=== PATIENT | female | born 1940 | race Caucasian/White ===

== ENCOUNTER 2016-11-06 10:11 | Outpatient (CLI) | payer MEDICARE, OTHER ==
--- NOTE | 2016-11-08 12:18 | Mammography Report ---
DIGITAL SCREENING MAMMOGRAM: 11/06/2016 CLINICAL INDICATION: A 75-year-old with history of benign left biopsy, for screening. COMPARISON: Films from [place], [place] dated 02/18/2015. TECHNIQUE: Routine CC and MLO projections were obtained of the breasts. FINDINGS: The breasts demonstrate scattered fibroglandular densities bilaterally. A few coarse, typi deven benign calcifications are present. No suspicious masses, clustered microcalcifications, or dandy ons of architectural distortion are identified. IMPRESSION: BENIGN FINDINGS. RECOMMENDATION: ROUTINE ANNUAL SCREENING UNLESS OTHERWISE CLINICALLY INDICATED. BIRADS CATEGORY 2-BENIGN FINDINGS. STANDARD QUALIFYING STATEMENTS 1. This examination was reviewed with the aid of Computer-Aided Detection (CAD). 2. A negative or benign imaging report should not delay biopsy if clinically suspicious findings are present. Consider surgical consultation if warranted. More than 5% of cancers are not identified by i maging. 3. Dense breasts may obscure an underlying neoplasm. JOB #: [id number] EXT JOB #:[id number]
== END 2016-11-06 10:12 | disposition home or self-care (01) ==
LOC: DI 10:11
PROVIDERS: ATTEND Family Medicine
DX: Z12.31 Encounter for screening mammogram for malignant neoplasm of breast (principal)
CPT/HCPCS: 77067

== ENCOUNTER 2017-09-24 10:54 | Outpatient (CLI) | payer MEDICARE, OTHER | END 2017-09-24 10:55 | disposition home or self-care (01) | LOC: NS 10:54 | PROVIDERS: ATTEND Nurse Practitioner Family | DX: Z71.3 Dietary counseling and surveillance (principal); E10.9 Type 1 diabetes mellitus without complications; E78.2 Mixed hyperlipidemia; E66.01 Morbid (severe) obesity due to excess calories; Z68.33 Body mass index [BMI] 33.0-33.9, adult | CPT/HCPCS: 97802 ==

== ENCOUNTER 2017-10-15 11:01 | Outpatient (CLI) | payer MEDICARE, OTHER | END 2017-10-15 11:02 | disposition home or self-care (01) | LOC: NS 11:01 | PROVIDERS: ATTEND Family Medicine | DX: Z71.3 Dietary counseling and surveillance (principal); E11.9 Type 2 diabetes mellitus without complications; Z68.33 Body mass index [BMI] 33.0-33.9, adult; Z79.899 Other long term (current) drug therapy; Z79.84 Long term (current) use of oral hypoglycemic drugs | CPT/HCPCS: 97803 ==

== ENCOUNTER 2018-02-23 12:48 | Emergency (ER) | payer MEDICARE, OTHER ==
[2018-02-23] MEDS ORDERED: cefTRIAXone 1 GM VIAL IM STA (13:45)
[2018-02-23] MEDS ORDERED: LIDOCAINE 1% 2 ML VIAL SUBQ ONE (13:45)
[2018-02-23] MEDS ORDERED: BACITRACIN OINT TOP STA (13:45)
--- NOTE | 2018-02-23 13:50 | ED Physician Documentation ---
History of Present Illness - Stated complaint Stated Complaint: CAT BITE - Chief complaint Chief Complaint: General - History obtained from History obtained from: Patient - History of Present Illness Timing: How many weeks ago (1) Pain level max: 5 Pain level now: 4 - Additonal information Additional information: Patient is a 77-year-old female presents to the emergency department with a cat scratch to the left foot. This is been ongoing for the past week. Saw her primary care provider several days ago and was started on Keflex and azithromycin. Her tetanus is up-to-date. She states that the redness has increased. No fevers. No vomiting. No weakness. Nothing makes it better or worse. 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 - Present Medications Home Medications: Ambulatory Orders Medication Instructions Recorded Confirmed Amlodipine Besylate 10 mg PO DAILY 08/30/17 08/30/17 Aspirin 81 mg PO DAILY 08/30/17 08/30/17 Dulaglutide [Trulicity] 0.75 mg SQ Q7D 08/30/17 08/30/17 Glimepiride 4 mg PO BIDWM 08/30/17 08/30/17 Losartan/Hydrochlorothiazide 1 each PO DAILY 08/30/17 08/30/17 [Losartan-Hctz 100-25 mg Tab] Metformin HCl 1,000 mg PO BIDWM 08/30/17 08/30/17 Multivitamin [Multivitamins] 1 each PO DAILY 08/30/17 08/30/17 Simvastatin 20 mg PO QPM 08/30/17 08/30/17 Vitamin B Complex 1 each PO DAILY 08/30/17 08/30/17 Amox/Clav 875/125 [Augmentin] 1 each PO Q12H #20 tablet 02/23/18 Azithromycin [Zithromax] 250 mg 02/23/18 cephALEXin [Cephalexin] 500 mg 02/23/18 - Allergies Allergies/Adverse Reactions: Allergies Allergy/AdvReac Type Severity Reaction Status Date / Time No Known Drug Allergies Allergy Verified 02/23/18 13:04 - Social History Does the pt smoke?: No Smoking Status: Never smoker PD ED PE NORMAL - Vitals Vital signs reviewed: Yes - General General: Alert and oriented X 3, No acute distress - Derm Derm: Warm and dry - Extremities Extremities: Other (Swelling and erythema to the dorsum of the left foot. There are 2 small very superficial infected blisters. These were unroofed and wound culture sent. She also has mild erythema extending up to the mid tibia. No crepitus. Neurovascularly intact) - Neuro Neuro: Alert and oriented X 3 - Psych Psych: Normal mood, Normal affect Results - Vitals Vitals: Vital Signs - 24 hr 02/23/18 13:00 Temperature 36.5 C Heart Rate 91 Respiratory 20 Rate Blood Pressure 114/95 H O2 Saturation 92 Oxygen O2 Source Room air PD MEDICAL DECISION MAKING - ED course Complexity details: considered differential, d/w patient ED course: Patient is a 77-year-old female presents to the emergency department with a left foot cat scratch that is becoming more infected. Is currently on Keflex and azithromycin. We will stop this and change her to Augmentin. Also given a dose of Rocephin intramuscularly in the emergency department. Wound culture was obtained and sent. Patient is well-appearing, nontoxic. Afebrile. Patient counseled regarding signs and symptoms for which I believe and urgent re- evaluation would be necessary. Patient with good understanding of and agreement to plan and is comfortable going home at this time This document was made in part using voice recognition software. While efforts are made to proofread this document, sound alike and grammatical errors may occur. - Sepsis Event Vital Signs: Vital Signs - 24 hr 02/23/18 13:00 Temperature 36.5 C Heart Rate 91 Respiratory 20 Rate Blood Pressure 114/95 H O2 Saturation 92 Oxygen O2 Source Room air Departure - Departure Disposition: 01 Home, Self Care Clinical Impression: Cat scratch Cellulitis Qualifiers: Site of cellulitis: unspecified site Qualified Code(s): L03.90 - Cellulitis, unspecified Condition: Good Instructions: ED Bite Cat, ED Infec Skin Cellulitis Follow-Up: Francisco Nuñez MD [Primary Care Provider] - Within 3 Days Prescriptions: Amox/Clav 875/125 [Augmentin] 1 each PO Q12H #20 tablet Comments: Your antibiotic medication was sent to [facility] in [place] as requested. Please stop your current antibiotics and start the new antibiotic when you pick it up. Return if you worsen. This should improve significantly over the next 24-48 hours. Return immediately for fevers, chills or worsening of symptoms.
[2018-02-23 14:18] VITALS: BP 147/68
== END 2018-02-23 14:18 | disposition home or self-care (01) ==
LOC: ED 12:48
DX: S90.812A Abrasion, left foot, initial encounter (principal); L03.90 Cellulitis, unspecified; I10 Essential (primary) hypertension; E11.9 Type 2 diabetes mellitus without complications; Z79.84 Long term (current) use of oral hypoglycemic drugs; W55.03XA Scratched by cat, initial encounter
CPT/HCPCS: 87070; 87077; 87181; 87205; 96372; 99283; A9270

== ENCOUNTER 2018-03-01 13:15 | Emergency (ER) | payer MEDICARE, OTHER ==
--- NOTE | 2018-03-01 14:46 | ED Physician Documentation ---
PD HPI ANIMAL BITE - Stated complaint Stated Complaint: CAT SCRATCH LF FOOT - Chief complaint Chief Complaint: General - History obtained from History obtained from: Patient - History of Present Illness Location of injury(ies): Left foot (dorsum of foot with cat scratch over a week ago and was on Keflex/zithromax with infection developing, and then changed to Augmentin in ER when worsening couple days later. Has been on the Augmentin for 5 days without improvement and redness slightly extended down foot. Slight weeping clear yellow fluid. No pus. 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 - Present Medications Home Medications: Ambulatory Orders Medication Instructions Recorded Confirmed Losartan/Hydrochlorothiazide 1 each PO DAILY 08/30/17 08/30/17 [Losartan-Hctz 100-25 mg Tab] Multivitamin [Multivitamins] 1 each PO DAILY 08/30/17 08/30/17 RX: Amlodipine Besylate 10 mg PO DAILY 08/30/17 08/30/17 RX: Aspirin 81 mg PO DAILY 08/30/17 08/30/17 RX: Glimepiride 4 mg PO BIDWM 08/30/17 08/30/17 RX: Metformin HCl 1,000 mg PO BIDWM 08/30/17 08/30/17 RX: Simvastatin 20 mg PO QPM 08/30/17 08/30/17 RX: Vitamin B Complex 1 each PO DAILY 08/30/17 08/30/17 Amox/Clav 875/125 [Augmentin] 1 each PO Q12H #20 tablet 02/23/18 RX: Doxycycline Monohydrate 100 mg PO BID #14 tablet 03/01/18 Saccharomyces Boulardii [Florastor] 250 mg PO BID #14 capsule 03/01/18 - Allergies Allergies/Adverse Reactions: Allergies Allergy/AdvReac Type Severity Reaction Status Date / Time No Known Drug Allergies Allergy Verified 03/01/18 13:41 - Social History Does the pt smoke?: No Smoking Status: Never smoker PD ED PE NORMAL - Vitals Vital signs reviewed: Yes - General General: Alert and oriented X 3, No acute distress, Well developed/nourished - Derm Derm: Normal color, Warm and dry - Extremities Extremities: Other (dorsum left foot with abrasion injury with redness and rounded area of inflammation with slight yellow drainage. No pus per se. No fluctuance. There is then redness around that area over 3/4 of the dorsum of the foot. No proximal red streaking. ) - Neuro Neuro: No motor deficit, No sensory deficit Results - Vitals Vitals: Vital Signs - 24 hr 03/01/18 03/01/18 13:39 15:31 Temperature 36.2 C L Heart Rate 75 73 Respiratory 20 20 Rate Blood Pressure 127/99 H 131/88 H O2 Saturation 94 99 Oxygen O2 Source Room air PD MEDICAL DECISION MAKING - ED course Complexity details: reviewed old records, considered differential (wound had cultured Pasteurella, but not responding to Augmentin for past 5 days. No palpable abscess for draining. Can change to Doxy for the Pasteurella and also in case there is co-infection with Staph or fecal bacteria (cat scratch, not bite). ), d/w patient - Sepsis Event Vital Signs: Vital Signs - 24 hr 03/01/18 03/01/18 13:39 15:31 Temperature 36.2 C L Heart Rate 75 73 Respiratory 20 20 Rate Blood Pressure 127/99 H 131/88 H O2 Saturation 94 99 Oxygen O2 Source Room air Departure - Departure Disposition: 01 Home, Self Care Clinical Impression: Cellulitis, Cat scratch Condition: Stable Record reviewed to determine appropriate education?: Yes Instructions: ED Infec Skin Cellulitis Follow-Up: Francisco Nuñez MD [Primary Care Provider] - Prescriptions: RX: Doxycycline Monohydrate 100 mg PO BID #14 tablet Saccharomyces Boulardii [Florastor] 250 mg PO BID #14 capsule Comments: The wound culture from the prior visit showed Pasteurella which would make you think the Augmentin is the appropriate antibiotic. However it does not seem to be clearing so I wonder if there is other germs continuing the infection as well. We will change it to doxycycline twice daily for a week. Soak the foot to 3 times a day in warm water and apply antibiotic ointment afterward. Have a dressing or wrap on it during the day and can leave it uncovered or just a dressing overnight. Recheck with your primary care in the next week. You can add a probiotic to reduce the amount of diarrhea associated with antibiotics. Discharge Date/Time: 03/01/18 15:46
[2018-03-01] MEDS ORDERED: DOXYCYCLINE 100 MG TABLET PO STA (15:16)
[2018-03-01 15:32] VITALS: BP 131/88
== END 2018-03-01 15:46 | disposition home or self-care (01) ==
LOC: ED 13:15
DX: L03.116 Cellulitis of left lower limb (principal); W55.03XA Scratched by cat, initial encounter; I10 Essential (primary) hypertension; E11.9 Type 2 diabetes mellitus without complications; Z79.84 Long term (current) use of oral hypoglycemic drugs
CPT/HCPCS: 99283; A9270

== ENCOUNTER 2018-05-13 08:52 | Outpatient (CLI) | payer MEDICARE, OTHER ==
--- NOTE | 2018-05-14 10:14 | Mammography Report ---
Reason: ANNUAL MAMMOGRAM Procedure Date: 05/13/2018 Accession Number: [id number] / [id number] Procedure: MICHELE - Screening Mammo Dig Bilat CPT Code: FULL RESULT: EXAM: Screening Mammo Dig Bilat DATE: 05/13/2018 9:33 AM CLINICAL HISTORY: Screening encounter. Family history of breast cancer in an aunt at age 68 and a cousin at age 50. TECHNIQUE: Bilateral CC and MLO views were obtained. COMPARISON: 11/06/2016 through 02/18/2015. FINDINGS: The breasts demonstrate scattered fibroglandular densities bilaterally. No suspicious masses, clustered microcalcifications, or regions of architectural distortion are identified. IMPRESSION: Negative examination RECOMMENDATION: Routine annual screening unless otherwise clinically indicated. BIRADS CATEGORY 1: Negative STANDARD QUALIFYING STATEMENTS: 1. This examination was not reviewed with the aid of Computer-Aided Detection (CAD). 2. A negative or benign imaging report should not preclude biopsy if clinically suspicious findings are present. 3. Dense breasts may obscure an underlying neoplasm. 4. This examination was reviewed without the aid of 3D breast imaging (tomosynthesis).
== END 2018-05-13 08:53 | disposition home or self-care (01) ==
LOC: DI 08:52
PROVIDERS: ATTEND Family Medicine
DX: Z12.31 Encounter for screening mammogram for malignant neoplasm of breast (principal); Z80.3 Family history of malignant neoplasm of breast
CPT/HCPCS: 77067

== ENCOUNTER 2020-12-21 10:02 | Outpatient (CLI) | payer MEDICARE, OTHER ==
[2020-12-21 20:37] LABS: ESTIMATED AVERAGE GLUCOSE 160 mg/dL (70-100); HEMOGLOBIN A1c% 7.2 % (4.27-6.07)
== END 2020-12-21 10:03 | disposition home or self-care (01) ==
LOC: LAB.S 10:02
PROVIDERS: ATTEND Family Medicine
DX: E11.9 Type 2 diabetes mellitus without complications (principal)
CPT/HCPCS: 36415; 83036

== ENCOUNTER 2021-03-07 08:00 | Outpatient (CLI) | payer MEDICARE, OTHER ==
--- NOTE | 2021-03-07 13:51 | XRAY Report ---
PROCEDURE: Knee 3 View RT INDICATIONS: CONTUSION OF RIGHT KNEE TECHNIQUE: 3 views of the right knee(s) were acquired. COMPARISON: None. FINDINGS: Bones: No fractures or dislocations. No suspicious bony lesions. There is severe medial and modera te patellofemoral and lateral compartment narrowing. Periarticular osteophytes are present. Chondroca lcinosis is noted. Soft tissues: Mild joint effusion. No suspicious soft tissue calcifications. IMPRESSION: Prominent tricompartmental arthritic change. No visualized acute fracture or dislocation . However, occult injury cannot be excluded. Recommend short interval imaging follow-up in 7-10 days as clinically indicated for additional evaluation. Reviewed by: Kathy Cruz MD on 03/07/2021 1:50 PM PDT Approved by: Kathy Cruz MD on 03/07/2021 1:50 PM PDT Station ID: [id number]
== END 2021-03-07 23:59 | disposition home or self-care (01) ==
LOC: DI.S 08:00
PROVIDERS: ATTEND Physician Assistant Medical
DX: S80.01XA Contusion of right knee, initial encounter (principal); M17.11 Unilateral primary osteoarthritis, right knee

== ENCOUNTER 2021-03-07 08:26 | Outpatient (CLI) | payer MEDICARE, OTHER ==
--- NOTE | 2021-03-08 08:56 | Mammography Report ---
BILATERAL DIGITAL SCREENING MAMMOGRAM 3D/2D: 03/07/2021 CLINICAL: Family history of breast cancer. Comparison is made to exams dated: 07/30/2019 mammogram, 05/13/2018 mammogram, 11/06/2016 mammogram, an d 02/18/2015 mammogram - [facility]. The tissue of both breasts is predominantly fa tty. No significant masses, calcifications, or other findings are seen in either breast. There has been no significant interval change. IMPRESSION: NEGATIVE There is no mammographic evidence of malignancy. A 1 year screening mammogram is recommended. This exam was interpreted at Station ID: [id number]. NOTE: For mammograms, a report in lay terms will be sent to the patient. Approximately 15% of breast malignancies will not be visualized mammographically. In the management of a palpable breast mass, a negative mammogram must not discourage biopsy of a clinically suspicious lesion. Electronically Signed By: Arnaud Smith M.D., jr/saundra:03/07/2021 16:18:46 ACR BI-RADS Category 1: Negative 3341F PARENCHYMAL PATTERN: (F) - The breast(s) demonstrate(s) diffuse fatty replacement. BI-RADS CATEGORY: (1) - 1 RECOMMENDATION: (ANNUAL) - Recommend routine annual screening mammography. [id number] 1 year screening LATERALITY: (B)
== END 2021-03-07 08:28 ==
LOC: DI.S 08:26
DX: Z12.31 Encounter for screening mammogram for malignant neoplasm of breast (principal); Z80.3 Family history of malignant neoplasm of breast

== ENCOUNTER 2022-12-29 10:43 | Outpatient (CLI) | payer MEDICARE, OTHER ==
--- NOTE | 2023-01-01 11:59 | Mammography Report ---
BILATERAL DIGITAL SCREENING MAMMOGRAM 3D/2D: 12/29/2022 CLINICAL: Routine screening. Comparison is made to exams dated: 03/07/2021 mammogram, 07/30/2019 mammogram, 05/13/2018 mammogram, mammogram, and 02/18/2015 mammogram - [facility]. There are scattered areas of fibroglandular density in both breasts (category b / 25%-50% glandular t issue). No significant masses, calcifications, or other findings are seen in either breast. There has been no significant interval change. IMPRESSION: NEGATIVE There is no mammographic evidence of malignancy. A 1 year screening mammogram is recommended. Based on the Tyrer Cuzick model (a risk assessment model) the patients lifetime risk is 2.7% and her 10 year risk is 0.0%. According to the ACR, ACS, and NCCN guidelines, an annual breast MRI exam nidhi g with mammogram is recommended if the patients lifetime risk is 20% or greater. This exam was interpreted at Station ID: [id number]. NOTE: For mammograms, a report in lay terms will be sent to the patient. Approximately 15% of breast malignancies will not be visualized mammographically. In the management of a palpable breast mass, a negative mammogram must not discourage biopsy of a clinically suspicious lesion. Electronically Signed By: Jason patterson/saundra:12/29/2022 11:58:24 letter sent: No_Letter ACR BI-RADS Category 1: Negative 3341F PARENCHYMAL PATTERN: (A) - The breast(s) demonstrate(s) scattered fibroglandular densities. BI-RADS CATEGORY: (1) - 1 Mammogram [id number] 1 year screening LATERALITY: (B)
== END 2022-12-29 10:44 | disposition home or self-care (01) ==
LOC: DI 10:43
PROVIDERS: ATTEND Nurse Practitioner Family
DX: Z12.31 Encounter for screening mammogram for malignant neoplasm of breast (principal)

== ENCOUNTER 2022-12-29 10:43 | Outpatient (CLI) | payer MEDICARE, OTHER ==
--- NOTE | 2022-12-29 12:02 | DEXA Report ---
PROCEDURE: Dexa Spine and/or Hip INDICATIONS: POST MENOPAUSAL TECHNIQUE: Dual energy x-ray absorptiometry (DXA) was performed on a ZenCard System. Regions measur ed are the AP Spine, femoral neck, and if needed forearm. COMPARISON: None FINDINGS: Lumbar Spine: Bone Mineral Density 1.240 g/cm/cm,T score 0.5. Left Femoral Neck: Bone Mineral Density 0.919 g/cm/cm, T score -0.9. Left Hip: Bone Mineral Density 0.904 g/cm/cm,T score -0.8. (T score greater or equal to -1.0: NORMAL) (T score from -1.1 to -2.4: OSTEOPENIA) (T score less than or equal to -2.5 to: OSTEOPOROSIS) Impression: By WHO criteria, this patient has normal bone density. Patients with diagnosis of osteoporosis or osteopenia should have regular bone mineral density assess ment. For those eligible for Medicare, routine testing is allowed once every 2 years. Testing frequ ency can be increased for patients who have rapidly progressing disease or for those who are receivin g medical therapy to restore bone mass. Reviewed by: Gersno Busch MD on 12/29/2022 12:00 PM PDT Approved by: Gerson Busch MD on 12/29/2022 12:00 PM PDT Station ID: [id number]
== END 2022-12-29 10:44 | disposition home or self-care (01) ==
LOC: DI 10:43
PROVIDERS: ATTEND Nurse Practitioner Family
DX: Z78.0 Asymptomatic menopausal state (principal)